=== PATIENT | female | born 1935 | race Caucasian/White ===

== ENCOUNTER → 2022-02-18 | Outpatient (CLI) | payer OTHER, SELFPAY ==
[2022-02-18 17:35] LABS: Thyroid Stim Hormone (TSH) 0.56 uIU/mL (0.358-3.74)
== END | disposition home or self-care (01) ==
PROVIDERS: PCP Family Medicine; Visit Provider Internal Medicine Cardiovascular Disease
DX: R01.1 Cardiac murmur, unspecified (principal); I47.1 Supraventricular tachycardia; E78.00 Pure hypercholesterolemia, unspecified; I10 Essential (primary) hypertension
CPT/HCPCS: 36415; 84443

== ENCOUNTER → 2022-03-01 | Outpatient (CLI) | payer MEDICARE, SELFPAY ==
--- NOTE | 2022-03-01 14:04 | ECHOD_ITS ---
Reason For Study: MURMUR Procedure This was a 2D Doppler, Color Flow transthoracic echocardiogram. Myocardial strain analysis was performed in this exam to aid in the assessment of cardiac function. The exam was of adequate technical quality. Exam performed in department. Left Ventricle Normal LV size. Left ventricular systolic function is normal. The estimated ejection fraction is 65 %. The global longitudinal strain = -22 % (normal). Stage 2 diastolic dysfunction. No regional wall motion abnormalities noted. Right Ventricle Normal RV size. Normal systolic function. Atria The left atrium is severely enlarged. The right atrium is moderately enlarged. No doppler evidence for ASD. Mitral Valve There is severe mitral annular calcification. The mitral annular calcification onto the base of the posterior mitral valve leaflet. Anterior leaflet diffuse mitral valve thickening. The mitral papillary muscle appears thickened and/or calcified. Moderately severe (3+) eccentric mitral valve insufficiency. Tricuspid Valve Normal tricuspid valve. Mild to moderate (1-2+) tricuspid valve insufficiency. Right ventricular systolic pressure estimated to be 70 mmHg. Severe pulmonary hypertension. Aortic Valve Trisinus/trileaflet aortic valve. Mild focal aortic valve calcification. Pulmonic Valve The pulmonic valve is not well visualized. Great Vessels Normal sized aortic root. Calcified aortic root. Pericardium/Pleural No pericardial effusion. MMode/2D Measurements & Calculations LVIDd: 4.3 cm IVSd: 0.94 cm Ao root diam: 2.6 cm LVIDs: 2.9 cm LVPWd: 0.98 cm RVDd: 3.0 cm FS: 33.7 % LAV(MOD-sp2): 85.7 ml LVAd ap4: 21.2 cm2 SV(MOD-sp4): 35.4 ml LVLd ap4: 5.8 cm EDV(MOD-sp4): 64.2 ml EDV(sp4-el): 66.2 ml LVAs ap4: 12.5 cm2 LVLs ap4: 4.5 cm ESV(MOD-sp4): 28.9 ml ESV(sp4-el): 29.5 ml EF(MOD-sp4): 55.1 % EF(sp4-el): 55.4 % SV(sp4-el): 36.7 ml LA A4 area: 29.3 cm2 LA dimension(2D): 4.1 cm RA A4 area: 21.3 cm2 Time Measurements MV dec time: 0.17 sec Doppler Measurements & Calculations MV E max cirilo: 150.6 cm/sec Lat Peak E' Cirilo: 7.6 cm/sec Med Peak E' Cirilo: 6.2 cm/sec MV A max cirilo: 79.3 cm/sec E/E' lat: 19.7 E/E' med: 24.4 MV E/A: 1.9 MV V2 max: 183.6 cm/sec Ao V2 max: 130.9 cm/sec MV max P.5 mmHg MV dec slope: 907.4 cm/sec2 Ao max P.9 mmHg MV V2 mean: 106.9 cm/sec Ao V2 mean: 94.8 cm/sec MV mean P.2 mmHg Ao mean P.0 mmHg MV V2 VTI: 44.6 cm Ao V2 VTI: 36.2 cm LV V1 max: 109.9 cm/sec PA V2 max: 111.6 cm/sec TR max cirilo: 408.9 cm/sec LV V1 max P.8 mmHg PA V2 mean: 82.3 cm/sec TR max P.9 mmHg LV V1 mean P.1 mmHg LV V1 mean: 84.2 cm/sec LV V1 VTI: 27.7 cm ECHO/Echo Complete Interpretation Summary Left ventricular systolic function is normal. The estimated ejection fraction is 65 %. The global longitudinal strain = -22 % (normal). The left atrium is severely enlarged. The right atrium is moderately enlarged. There is severe mitral annular calcification. The mitral annular calcification onto the base of the posterior mitral valve le aflet. Anterior leaflet diffuse mitral valve thickening. The mitral papillary muscle appears thickened and/or calcified. Moderately severe (3+) eccentric mitral valve insufficiency. Mild to moderate (1-2+) tricuspid valve insufficiency. Mild focal aortic valve calcification. Calcified aortic root. Right ventricular systolic pressure estimated to be 70 mmHg. Severe pulmonary hypertension. Stage 2 diastolic dysfunction. Ordering Physician: Vargas Banerjee Referring Physician: Vargas Banerjee Performed By: Teressa Robison RCS
== END | disposition home or self-care (01) ==
PROVIDERS: PCP Family Medicine; Referring Provider Internal Medicine Cardiovascular Disease; Visit Provider Internal Medicine Cardiovascular Disease
DX: R01.1 Cardiac murmur, unspecified (principal); I47.1 Supraventricular tachycardia; I10 Essential (primary) hypertension; E78.00 Pure hypercholesterolemia, unspecified
CPT/HCPCS: 93306